=== PATIENT | female | born 1985 | race Caucasian/White ===

== ENCOUNTER 2021-05-10 08:15 | Emergency (ER) | payer OTHER ==
[~2021-05-10] VITALS: Ht 152.4 cm; Wt 66.7 kg
== END 2021-05-10 11:58 | disposition home or self-care (01) ==
LOC: ER 08:15
DX: N93.8 Other specified abnormal uterine and vaginal bleeding (principal)

== ENCOUNTER 2021-06-28 10:16 | Emergency (ER) | payer OTHER ==
[~2021-06-28] VITALS: Ht 152.4 cm; Wt 68.5 kg
[2021-06-28] MEDS ORDERED: ZITHROMAX500 MG PO (16:08)
[2021-06-28] MEDS ORDERED: PROAIR RESPICL90 MCG IH (16:08)
== END 2021-06-28 16:31 ==
LOC: ER 10:16
DX: U07.1 COVID-19 (principal); E86.0 Dehydration; R50.9 Fever, unspecified

== ENCOUNTER 2021-07-02 11:00 | Outpatient (CLI) | payer OTHER ==
[~2021-07-02 11:00] MED LIST: PROAIR RESPICL90 MCG IH; ZITHROMAX500 MG PO
== END 2021-07-02 12:00 | disposition home or self-care (01) ==
LOC: ASH CLINIC 11:00
PROVIDERS: ATTEND General Practice
DX: Z23 Encounter for immunization (principal); U07.1 COVID-19

== ENCOUNTER 2021-07-23 14:42 | Outpatient (CLI) | payer OTHER | END 2021-07-23 16:19 | disposition home or self-care (01) | LOC: PRENATAL 14:42 | PROVIDERS: ATTEND Obstetrics & Gynecology Maternal & Fetal Medicine | DX: O35.0XX1 Maternal care for (suspected) central nervous system malformation in fetus, fetus 1 (principal); O35.3XX1 Maternal care for (suspected) damage to fetus from viral disease in mother, fetus 1; O98.512 Other viral diseases complicating pregnancy, second trimester; Z36.89 Encounter for other specified antenatal screening; Z3A.26 26 weeks gestation of pregnancy ==

== ENCOUNTER 2021-11-09 00:46 | Inpatient (IN) | payer OTHER ==
[~2021-11-09] VITALS: Ht 152.4 cm; Wt 4.1 kg
[2021-11-09] MEDS ORDERED: PRENATAL CAPLE1 EAC1 PO (01:00)
[2021-11-09] MEDS ORDERED: IRON325 MG PO (01:00)
[2021-11-09] MEDS ORDERED: FOLIC ACID20 MG PO (01:00)
== END 2021-11-13 12:20 | disposition home or self-care (01) | DRG 788 ==
LOC: LDR 00:46 → OB/GYN 00:46 → LDR 00:46 → OB/GYN 11-11 01:01
PROVIDERS: ADMIT Obstetrics & Gynecology; ATTEND Obstetrics & Gynecology
PROC: 10D00Z1 Extraction of Products of Conception, Low, Open Approach (ICD-10-PCS; principal; 2021-11-09)
PROC: 0JNC0ZZ Release Pelvic Region Subcutaneous Tissue and Fascia, Open Approach (ICD-10-PCS; 2021-11-09)
PROC: 4A1HXFZ Monitoring of Products of Conception, Cardiac Rhythm, External Approach (ICD-10-PCS; 2021-11-09)
DX: O62.1 Secondary uterine inertia (principal); O33.5XX0 Maternal care for disproportion due to unusually large fetus, not applicable or unspecified; O99.892 Other specified diseases and conditions complicating childbirth; N80.0 Endometriosis of uterus; N73.6 Female pelvic peritoneal adhesions (postinfective); Z3A.40 40 weeks gestation of pregnancy; Z37.0 Single live birth

== ENCOUNTER 2021-12-22 01:35 | Emergency (ER) | payer OTHER ==
[~2021-12-22] VITALS: Ht 152.4 cm; Wt 63.5 kg
[~2021-12-22 01:35] MED LIST changes: +FOLIC ACID20 MG PO; +IRON325 MG PO; +PRENATAL CAPLE1 EAC1 PO
== END 2021-12-22 07:13 | disposition home or self-care (01) ==
LOC: ER 01:35
DX: K80.50 Calculus of bile duct without cholangitis or cholecystitis without obstruction (principal)

== ENCOUNTER 2023-09-20 08:04 | Outpatient (CLI) | payer OTHER | END 2023-09-20 08:05 | disposition home or self-care (01) | LOC: PRENATAL 08:04 | PROVIDERS: ATTEND Obstetrics & Gynecology Maternal & Fetal Medicine | DX: O35.9XX0 Maternal care for (suspected) fetal abnormality and damage, unspecified, not applicable or unspecified (principal); O34.219 Maternal care for unspecified type scar from previous cesarean delivery; O44.00 Complete placenta previa NOS or without hemorrhage, unspecified trimester; Z14.8 Genetic carrier of other disease; Z3A.20 20 weeks gestation of pregnancy ==

== ENCOUNTER 2023-12-14 09:09 | Outpatient (CLI) | payer OTHER | END 2023-12-14 09:10 | disposition home or self-care (01) | LOC: PRENATAL 09:09 | PROVIDERS: ATTEND Obstetrics & Gynecology Maternal & Fetal Medicine | DX: O26.849 Uterine size-date discrepancy, unspecified trimester (principal); O36.8199 Decreased fetal movements, unspecified trimester, other fetus; O09.529 Supervision of elderly multigravida, unspecified trimester; O34.219 Maternal care for unspecified type scar from previous cesarean delivery; Z3A.32 32 weeks gestation of pregnancy ==

== ENCOUNTER 2024-01-18 08:30 | Inpatient (IN) | payer OTHER ==
[~2024-01-18] VITALS: Ht 180.3 cm; Wt 4.6 kg
[2024-01-26 14:27] LABS: URINE APPEARANCE Cloudy; URINE BILIRRUBIN Negative (NEGATIVE); URINE BLOOD Negative; URINE COLOR Yellow; URINE GLUCOSE Negative (NEGATIVE); URINE LEUKOCYTE Negative; URINE NITRATE Negative; URINE PROTEIN 30 (NEGATIVE); URINE UROBILINOGEN 0.2 E.U./dl
[2024-01-26 14:30] LABS: HEMATOCRIT 35.8 % (36.0-45.00); HEMOGLOBIN 12.3 g/dL (12.0-15.00); MEAN CORPUSCULAR HEMOGLOBIN 30.3 pg (27.00-32.0); MEAN CORPUSCULAR HGB CONC 34.4 g/dl (32.0-36.0); PLATELET COUNT 209 K/uL (150-450); RED BLOOD COUNT 4.07 M/uL (4.00-6.00); RED CELL DISTRIBUTION WIDTH 14.3 % (11.5-14.5)
[2024-01-26 14:31] LABS: URINE BACTERIA 1360.7 uL (0.0-1933); URINE EPITHELIAL CELLS 73.4 uL (0.0-38.8); URINE RBC 5.1 uL (0.0-20.8); URINE WBC 23.8 uL (0.0-23.2)
[2024-01-26 14:58] LABS: INR < 0.93; PARTIAL THROMBOPLASTIN TIME 26.3 SECONDS (22.0-34.0); PROTHROMBIN TIME 9.4 SECONDS (9.0-11.5)
[2024-01-26 14:59] LABS: ALBUMIN 2.9 gm/dL (3.4-5.0); BILIRUBIN TOTAL 0.64 mg/dL (0.3-1.2); CALCIUM 9.4 mg/dL (8.5-10.1); CREATININE SERUM 0.76 mg/dL (0.55-1.02); GFR 85.63; GLOBULINA 3.8 G/DL (2.4-3.5); POTASSIUM 4.26 mEq/L (3.5-5.1); TOTAL PROTEIN 6.7 gm/dL (6.4-8.2)
[2024-01-26] MEDS ORDERED: RINGERS SOLUTION,LACTATED 1,000 ML IV SCH (15:30)
[2024-01-26] MEDS ORDERED: CEFAZOLIN SODIUM 1,000 MG VIAL IV SCH (15:30)
[2024-01-26] MEDS ORDERED: OXYTOCIN 10 UNITS/ML VIAL ONE (20:54)
[2024-01-26] MEDS ORDERED: ERYTHROMYCIN BASE 3.5 GM OINT...G. OP ONE (20:54)
[2024-01-26] MEDS ORDERED: CHLORHEXIDINE GLUCONATE 120 ML BOTTLE TOP SCH ×2 (22:15→22:30)
[2024-01-26] MEDS ORDERED: OXYTOCIN 1,000 ML IV SCH (22:15)
[2024-01-26] MEDS ORDERED: ERYTHROMYCIN BASE 1 GM TUBE OP SCH (22:15)
[2024-01-26] MEDS ORDERED: ERYTHROMYCIN BASE 1 GM TUBE OP ONE (22:15)
[2024-01-26] MEDS ORDERED: OXYTOCIN 10 UNIT/ML (10ML) IV ONE (22:15)
[2024-01-26] MEDS ORDERED: MORPHINE SULFATE 4 MG/ML CARTRIDGE IV PRN (22:30)
[2024-01-26] MEDS ORDERED: ONDANSETRON HCL 2 MG/ML VIAL IV PRN (22:30)
[2024-01-26] MEDS ORDERED: METOCLOPRAMIDE HCL 5 MG/ML VIAL IV SCH (22:30)
[2024-01-27] MEDS ORDERED: KETOROLAC TROMETHAMINE 30 MG VIAL IV SCH
[2024-01-27] MEDS ORDERED: OXYTOCIN 10 UNITS/ML VIAL ONE (04:38)
[2024-01-27] MEDS ORDERED: DOCUSATE SODIUM 100MG CAP PO SCH (09:00)
[2024-01-27] MEDS ORDERED: SIMETHICONE 125 MG CAPSULE PO SCH (09:00)
[2024-01-27 09:34] LABS: HEMATOCRIT 31.5 % (36.0-45.00); HEMOGLOBIN 10.9 g/dL (12.0-15.00); MEAN CELL VOLUME 86.4 fL (80.00-100.00); MEAN CORPUSCULAR HGB CONC 34.8 g/dl (32.0-36.0); PLATELET COUNT 184 K/uL (150-450); RED BLOOD COUNT 3.65 M/uL (4.00-6.00); RED CELL DISTRIBUTION WIDTH 14.8 % (11.5-14.5)
[2024-01-27] MEDS ORDERED: IBUprofen 800 MG TABLET PO SCH (13:00)
[2024-01-27] MEDS ORDERED: IRON/V.C/V.B12/FOLIC A/VIT. E 1 CAPL CAPLET PO SCH (17:00)
== END 2024-01-28 14:47 | disposition home or self-care (01) | DRG 785 ==
LOC: OB/GYN 01-26 08:30 → LDR 01-26 13:03 → OB/GYN 01-26 14:45 → O/R 01-26 21:22 → OB/GYN 01-26 22:08
PROVIDERS: ADMIT Obstetrics & Gynecology; ATTEND Obstetrics & Gynecology
PROC: 0UB70ZZ Excision of Bilateral Fallopian Tubes, Open Approach (ICD-10-PCS; 2024-01-26)
PROC: 4A1HXCZ Monitoring of Products of Conception, Cardiac Rate, External Approach (ICD-10-PCS; 2024-01-26)
PROC: 10D00Z1 Extraction of Products of Conception, Low, Open Approach (ICD-10-PCS; principal; 2024-01-26 14:45)
DX: O36.63X0 Maternal care for excessive fetal growth, third trimester, not applicable or unspecified (principal); O34.211 Maternal care for low transverse scar from previous cesarean delivery; Z3A.39 39 weeks gestation of pregnancy; Z37.0 Single live birth; Z20.822 Contact with and (suspected) exposure to COVID-19; Z30.2 Encounter for sterilization